=== PATIENT | male | born 1950 | race Caucasian/White ===

== ENCOUNTER → 2021-01-17 | Outpatient (CLI) | payer MEDICARE ==
--- NOTE | 2021-01-17 11:43 | P.STRESS ---
- Stress Test Note Stress Test Results/Findings: Exam Performed: stress echo exercise Exam Date: 01/17/21 Reason for Exam: Abnormal EKG Height: 5 ft 7 in Weight: 99.5 kg Protocol: Brian Stage: II Duration of Exercise: 5:15 Resting Heart Rate: 78 Resting Blood Pressure: 192/80 Maximum Achieved Heart Rate: 141 Maximum Achieved Blood Pressure: 200/78 85% PMHR: 128 100% PMHR: 151 METS: 5.2 Technologist Comment: Stress Test Results/Findings: This is a 70-year-old gentleman with history of hypertension and diabetes and smoking history, being evaluated for cardiac status. Stress data:. Baseline EKG showed sinus rhythm with normal MS interval and nonspecific ST-T abnormalities. Blood pressure at rest is 190/80 with pulse rate of 78. Patient walked on a Brian protocol for 10 minutes and 50 seconds achieving a maximal heart rate of 141 with blood pressure 200/78. EKGs taken during and after exercise showed more problems with ST-T abnormalities. Compared to the baseline with about 1-[address] depression. Echo data: Baseline echo images showed normal wall motion and thickening. Exercise echo images showed augmentation of wall motion and thickening in all the segments. Final impression: #1. Negative stress test #2. Negative stress echo.
--- NOTE | 2021-01-19 10:21 | ECHOS ---
Stress Test Results/Findings: Exam Performed: stress echo exercise Exam Date: 01/17/21 Reason for Exam: Abnormal EKG Height: 5 ft 7 in Weight: 99.5 kg Protocol: Brian Stage: II Duration of Exercise: 5:15 Resting Heart Rate: 78 Resting Blood Pressure: 192/80 Maximum Achieved Heart Rate: 141 Maximum Achieved Blood Pressure: 200/78 85% PMHR: 128 100% PMHR: 151 METS: 5.2 Technologist Comment: Stress Test Results/Findings: This is a 70-year-old gentleman with history of hypertension and diabetes and smoking history, being evaluated for cardiac status. Stress data:. Baseline EKG showed sinus rhythm with normal DE interval and nonspecific ST-T abnormalities. Blood pressure at rest is 190/80 with pulse rate of 78. Patient walked on a Brian protocol for 10 minutes and 50 seconds achieving a maximal heart rate of 141 with blood pressure 200/78. EKGs taken during and after exercise showed more problems with ST-T abnormalities. Compared to the baseline with about 1-[address] depression. Echo data: Baseline echo images showed normal wall motion and thickening. Exercise echo images showed augmentation of wall motion and thickening in all the segments. Final impression: #1. Negative stress test #2. Negative stress echo. MICHELLE
== END | disposition home or self-care (01) ==
LOC: RADNMMAIN 09:42
PROVIDERS: ATTEND Family Medicine
DX: I10 Essential (primary) hypertension (principal); E78.00 Pure hypercholesterolemia, unspecified; E11.9 Type 2 diabetes mellitus without complications
CPT/HCPCS: 93351

== ENCOUNTER 2021-08-05 15:21 | Emergency (ER) | payer MEDICARE ==
[2021-08-05 15:59] VITALS: RESP 18
--- NOTE | 2021-08-05 16:14 | ED ---
URI HPI - General Chief Complaint: Upper Respiratory Infection Stated Complaint: Difficulty Breathing Time Seen by Provider: 08/05/21 16:12 Source: patient Mode of arrival: ambulatory Limitations: no limitations - History of Present Illness Initial Comments: 70-year-old male patient presents to the emergency department today for evaluation of cough and headache. Patient states he is having associated rib pain from the persisting cough. States during coughing episodes he does become short of breath. Denies any fever or chills. States his daughter was recently sick with similar symptoms. She never was tested. He is concerned he may have COVID. He denies nausea, vomiting, or diarrhea. Denies chest pain. Has medical history significant for DM, HTN, and is a former smoker. No formal diagnosis of COPD. - Related Data Home Medications Medication Instructions Recorded Confirmed Losartan [Cozaar] 50 mg PO DAILY 02/16/15 02/17/15 amLODIPine BESYLATE [Norvasc] 10 mg PO DAILY 02/16/15 02/17/15 hydroCHLOROthiazide [Hydrodiuril] 25 mg PO DAILY 02/16/15 02/17/15 Previous Rx's Medication Instructions Recorded Azithromycin [Zithromax Z-pack (6 0 mg PO DIRECTED #6 tab 08/05/21 tabs)] guaiFENesin-DM 600/30MG [Mucinex 2 each PO Q12HR PRN #20 tab 08/05/21 Dm] predniSONE 50 mg PO DAILY #5 tablet 08/05/21 Allergies Allergy/AdvReac Type Severity Reaction Status Date / Time No Known Allergies Allergy Verified 08/05/21 15:58 Review of Systems ROS Statement: Those systems with pertinent positive or pertinent negative responses have been documented in the HPI. ROS Other: All systems not noted in ROS Statement are negative. Past Medical History Past Medical History: Diabetes Mellitus, Hyperlipidemia, Hypertension History of Any Multi-Drug Resistant Organisms: None Reported Past Surgical History: Orthopedic Surgery Additional Past Surgical History / Comment(s): LT THUMB TRIGGER RELEASE. COLONOSCOPY Past Anesthesia/Blood Transfusion Reactions: No Reported Reaction Past Psychological History: No Psychological Hx Reported Smoking Status: Never smoker Past Alcohol Use History: Occasional Past Drug Use History: None Reported - Past Family History Brother(s) Family Medical History: Cancer General Exam Limitations: no limitations General appearance: alert, in no apparent distress Eye exam: Present: normal appearance, PERRL, EOMI. Absent: scleral icterus, conjunctival injection, periorbital swelling ENT exam: Present: normal exam, normal oropharynx, mucous membranes moist Respiratory exam: Present: normal lung sounds bilaterally. Absent: respiratory distress, wheezes, rales, rhonchi, stridor Cardiovascular Exam: Present: regular rate, normal rhythm, normal heart sounds. Absent: systolic murmur, diastolic murmur, rubs, gallop, clicks GI/Abdominal exam: Present: soft, normal bowel sounds. Absent: distended, tenderness, guarding, rebound, rigid Neurological exam: Present: alert, oriented X3, CN II-XII intact Psychiatric exam: Present: normal affect, normal mood Skin exam: Present: warm, dry, intact, normal color. Absent: rash Course Vital Signs 08/05/21 08/05/21 08/05/21 15:55 17:28 18:17 Temperature 99.8 F H 99.4 F Pulse Rate 71 72 Respiratory 18 18 18 Rate Blood Pressure 157/78 O2 Sat by Pulse 95 Oximetry 08/05/21 18:26 Temperature 99.4 F Pulse Rate 72 Respiratory 18 Rate Blood Pressure 157/78 O2 Sat by Pulse 95 Oximetry Medical Decision Making - Medical Decision Making 70-year-old male patient presents to the emergency department today for evaluation of upper respiratory congestion and cough. Also reports headaches. Physical examination revealed clear lung sounds. Oxygen saturation 95% on room air. Chest x-ray is negative. Tested negative for COVID-19. He'll be discharged with prescription for prednisone, Mucinex, azithromycin. Instructed to follow-up with the primary care physician for recheck in 1-2 days. Return parameters discussed in detail. He verbalizes understanding and agrees with this plan. Case discussed with my attending Dr. Yancey. - Lab Data Lab Results 08/05/21 Range/Units 16:08 Coronavirus (PCR) Not Detected (Not Detectd) - Radiology Data Radiology results: report reviewed, image reviewed Two-view x-ray of the chest is obtained. Report was reviewed in its entirety. Impression by Dr. Cope shows no active cardiopulmonary disease. Normal heart. Disposition Clinical Impression: Acute bronchitis Disposition: ADMITTED IP TO THIS [facility] Condition: Serious Instructions (If sedation given, give patient instructions): Acute Bronchitis (ED) Additional Instructions: Increase fluids. Take medications as directed. Follow up with your primary care physician for recheck in 1-2 days. Prescriptions: guaiFENesin-DM 600/30MG [Mucinex Dm] 2 each PO Q12HR PRN #20 tab PRN Reason: Cough predniSONE 50 mg PO DAILY #5 tablet Azithromycin [Zithromax Z-pack (6 tabs)] 0 mg PO DIRECTED #6 tab Is patient prescribed a controlled substance at d/c from ED?: No Referrals: Randall Masters MD [Primary Care Provider] - 1-2 days Time of Disposition: 18:08
--- NOTE | 2021-08-05 18:04 | XR ---
EXAMINATION TYPE: XR chest 2V DATE OF EXAM: 08/05/2021 COMPARISON: NONE HISTORY: Cough TECHNIQUE: 2 views FINDINGS: Heart is normal. Lungs are clear of consolidation. There is slight coarsening of interstiti al markings. Costophrenic angles are clear. IMPRESSION: No active cardiopulmonary disease. Normal heart.
[2021-08-05 18:18] VITALS: BP 157/78; PULSE 72; TEMP 99.4
== END 2021-08-05 18:27 | disposition other institution (70) ==
LOC: EC 15:21
DX: J20.9 Acute bronchitis, unspecified (principal); I10 Essential (primary) hypertension; E11.9 Type 2 diabetes mellitus without complications; E78.5 Hyperlipidemia, unspecified; Z79.52 Long term (current) use of systemic steroids; Z20.822 Contact with and (suspected) exposure to COVID-19; Z79.84 Long term (current) use of oral hypoglycemic drugs
CPT/HCPCS: 71046; 87635; 99285

== ENCOUNTER 2021-09-07 16:35 | Emergency (ER) | payer MEDICARE ==
[2021-09-07 17:39] VITALS: BP 176/72; PULSE 110; RESP 20; TEMP 98.6
--- NOTE | 2021-09-07 21:25 | XR ---
EXAMINATION TYPE: XR shoulder complete RT DATE OF EXAM: 09/07/2021 COMPARISON: NONE HISTORY: Pain and bruising TECHNIQUE: 3 views FINDINGS: I see no fracture nor dislocation. Joint spaces are normal. There are no pathologic calcifi cations. IMPRESSION: Negative right shoulder exam.
--- NOTE | 2021-09-07 21:39 | ED ---
Upper Extremity HPI - General Chief Complaint: Extremity Injury, Upper Stated Complaint: Rt Shoulder Pain Time Seen by Provider: 09/07/21 20:49 Source: patient, RN notes reviewed Mode of arrival: ambulatory Limitations: no limitations - History of Present Illness Initial Comments: Patient is a 71-year-old male presenting to the emergency Department with complaints of injury to his right shoulder. He states about 1 month ago, he was putting up an electric fireplace when it slipped and he caught most of it with his right arm. He states he felt a pull and pain in the front of his right shoulder. He states he's been noticing over the past couple weeks and then one week ago he was putting away a pool and doing a lot of heavy lifting which and aggravated the arm again. He states a few days ago he noticed bruising along his right biceps and got concerned, came in for evaluation. He states the pain is actually been improving over the last couple days, he has full range of motion. He has no further complaints at this time. - Related Data Home Medications Medication Instructions Recorded Confirmed Losartan [Cozaar] 50 mg PO DAILY 02/16/15 02/17/15 amLODIPine BESYLATE [Norvasc] 10 mg PO DAILY 02/16/15 02/17/15 hydroCHLOROthiazide [Hydrodiuril] 25 mg PO DAILY 02/16/15 02/17/15 Previous Rx's Medication Instructions Recorded Azithromycin [Zithromax Z-pack (6 0 mg PO DIRECTED #6 tab 08/05/21 tabs)] guaiFENesin-DM 600/30MG [Mucinex 2 each PO Q12HR PRN #20 tab 08/05/21 Dm] predniSONE 50 mg PO DAILY #5 tablet 08/05/21 Allergies Allergy/AdvReac Type Severity Reaction Status Date / Time No Known Allergies Allergy Verified 09/07/21 17:39 Review of Systems ROS Statement: Those systems with pertinent positive or pertinent negative responses have been documented in the HPI. ROS Other: All systems not noted in ROS Statement are negative. Past Medical History Past Medical History: Diabetes Mellitus, Hyperlipidemia, Hypertension History of Any Multi-Drug Resistant Organisms: None Reported Past Surgical History: Orthopedic Surgery Additional Past Surgical History / Comment(s): LT THUMB TRIGGER RELEASE. COLONOSCOPY Past Anesthesia/Blood Transfusion Reactions: No Reported Reaction Past Psychological History: No Psychological Hx Reported Smoking Status: Never smoker Past Alcohol Use History: Occasional Past Drug Use History: None Reported - Past Family History Brother(s) Family Medical History: Cancer General Exam - General Exam Comments Initial Comments: GENERAL: Patient is well-developed and well-nourished. Patient is nontoxic and in no acute distress. HEAD: Atraumatic, normocephalic. EYES: Pupils equal round and reactive to light, extraocular movements intact, sclera anicteric, conjunctiva are normal. Eyelids were unremarkable. LUNGS: Unlabored respirations. Breath sounds clear to auscultation bilaterally and equal. No wheezes rales or rhonchi. HEART: Regular rate and rhythm without murmurs, rubs or gallops. MUSCULOSKELETAL: Patient has mild pain to palpation of the anterior right shoulder over the biceps tendon attachment, he has some mild bruising noted over the biceps belly. His range of motion is completely normal, strength is 5 out of 5. Mild swelling noted over the right bicep area as well. No clubbing or cyanosis. NEUROLOGICAL: Patient is alert and oriented x 3. SKIN: Warm, Dry, normal turgor, no rashes or lesions noted. Limitations: no limitations Course Vital Signs 09/07/21 17:37 Temperature 98.6 F Pulse Rate 110 H Respiratory 20 Rate Blood Pressure 176/72 O2 Sat by Pulse 94 L Oximetry Medical Decision Making - Medical Decision Making Patient is a 71-year-old male here for right shoulder pain over the past month. He had another recent injury and noted some bruising over the biceps belly. His exam is consistent with a bicep tendon strain as well as strain to the biceps muscle. We discussed limiting his physical activity with the right arm, he needs to let this heal. He has seen Dr. Garnett in the past for his fingers, we discussed going back to see their office if symptoms persist after resting. He is agreeable to this plan of care. He can use ice to the areas well. X- ray reveals no acute fractures dislocations. He is stable for discharge. Disposition Clinical Impression: Strain of right biceps tendon Disposition: HOME SELF-CARE Condition: Stable Instructions (If sedation given, give patient instructions): Tendinitis (ED) Additional Instructions: Please return to the Emergency Department if symptoms worsen or any other concerns. Recommend decreasing heavy lifting of the right arm to allow for biceps to heal. If symptoms persist for the next 2-3 weeks, follow-up with your orthopedic doctor. Is patient prescribed a controlled substance at d/c from ED?: No Referrals: Randall Masters MD [Primary Care Provider] - 1-2 days Braeden Irvin MD [Medical Doctor] - 1-2 days Time of Disposition: 21:39
== END 2021-09-07 21:51 | disposition home or self-care (01) ==
LOC: EC 16:35
DX: S46.211A Strain of muscle, fascia and tendon of other parts of biceps, right arm, initial encounter (principal); E11.9 Type 2 diabetes mellitus without complications; I10 Essential (primary) hypertension; E78.5 Hyperlipidemia, unspecified; Z79.52 Long term (current) use of systemic steroids; Z79.899 Other long term (current) drug therapy; W20.8XXA Other cause of strike by thrown, projected or falling object, initial encounter
CPT/HCPCS: 99283

== ENCOUNTER → 2024-02-18 | Outpatient (CLI) | payer MEDICARE ==
--- NOTE | 2024-02-19 15:09 | CA ---
Transthoracic Echo Report Name: Luis M Gonzales Age: 73 Gender: M : 1950 Exam Date: 02/18/2024 11:29 Exam Location: [place] [facility] Ht (in): 57 Wt (lb): 210 Ordering Physician: Lizet Breen DO Attending/Referring Phys: Application Development Intern Macrina Mar RDCS Procedure CPT: Indications: R01.1 cardiac murmur R00.1 Bradycardia Cardiac Hx: Technical Quality: Fair Contrast 1: Total Dose (mL): Contrast 2: Total Dose (mL): MEASUREMENTS (Male / Female) Normal Values 2D ECHO LV Diastolic Diameter PLAX 4.6 cm 4.2 - 5.9 / 3.9 - 5.3 cm LV Systolic Diameter PLAX 2.9 cm IVS Diastolic Thickness 1.0 cm 0.6 - 1.0 / 0.6 - 0.9 cm LVPW Diastolic Thickness 0.9 cm 0.6 - 1.0 / 0.6 - 0.9 cm LV Relative Wall Thickness 0.4 RV Internal Dim ED PLAX 1.7 cm LA Systolic Diameter LX 4.1 cm 3.0 - 4.0 / 2.7 - 3.8 cm LV Diastolic Volume MOD BP 62.7 cm??? 67 - 155 / 56 - 104 cm??? LV Systolic Volume MOD BP 24.5 cm??? 22 - 58 / 19 - 49 cm??? LV Ejection Fraction MOD BP 61.0 % >= 55 % LV Diastolic Volume MOD 4C 63.8 cm??? LV Systolic Volume MOD 4C 22.8 cm??? LV Ejection Fraction MOD 4C 64.3 % LV Diastolic Length 4C 6.8 cm LV Systolic Length 4C 5.3 cm LV Diastolic Volume MOD 2C 59.2 cm??? LV Systolic Volume MOD 2C 25.1 cm??? LV Ejection Fraction MOD 2C 57.6 % LV Diastolic Length 2C 6.5 cm LV Systolic Length 2C 5.6 cm LA Volume 64.4 cm??? 18 - 58 / 22 - 52 cm??? LA Volume Index 31.9 cm???/m??? 16 - 28 cm???/m??? M-MODE Aortic Root Diameter MM 2.8 cm LA Systolic Diameter MM 3.7 cm LA Ao Ratio MM 1.3 AV Cusp Separation MM 1.5 cm DOPPLER AV Peak Velocity 213.9 cm/s AV Peak Gradient 18.3 mmHg AV Mean Velocity 150.1 cm/s AV Mean Gradient 9.9 mmHg AV Velocity Time Integral 33.8 cm LVOT Peak Velocity 128.8 cm/s LVOT Peak Gradient 6.6 mmHg LVOT Velocity Time Integral 32.4 cm MV Area PHT 2.2 cm??? Mitral E Point Velocity 94.2 cm/s Mitral A Point Velocity 96.1 cm/s Mitral E to A Ratio 1.0 MV Deceleration Time 345.3 ms TR Peak Velocity 204.6 cm/s TR Peak Gradient 16.7 mmHg Right Ventricular Systolic Press 20.3 mmHg PV Peak Velocity 117.2 cm/s PV Peak Gradient 5.5 mmHg FINDINGS Left Ventricle Left ventricular ejection fraction is estimated at 55-60%. Normal Left ventricular size, wall thickness, systolic function with no obvious regional wall motion abnormalities. Normal Left ventricular diastolic filling pattern. Right Ventricle Normal right ventricular size and function. Right ventricular systolic pressure within normal limits. Right Atrium Normal right atrial size. Left Atrium Mildly increased left atrial diameter. Mildly increased left atrial volume. Mitral Valve Structurally normal mitral valve. Trace mitral regurgitation. Aortic Valve Trileaflet aortic valve. Trace aortic regurgitation. Mild aortic stenosis with a peak gradient of 18mmHg and a mean gradient of 10 mmHg. Tricuspid Valve Structurally normal tricuspid valve. Mild tricuspid regurgitation. Pulmonic Valve Structurally normal pulmonic valve. No pulmonic stenosis. Pericardium No pericardial or pleural effusion. Aorta Normal size aortic root and proximal ascending aorta. CONCLUSIONS Normal LV size and function with mild aortic stenosis Previewed by: Dr. Reynaldo Branch MD (Electronically Signed) Final Date: 19 February 2024 15:08
== END | disposition home or self-care (01) ==
LOC: RADECHMAIN 10:48
PROVIDERS: ATTEND Family Medicine
DX: I35.0 Nonrheumatic aortic (valve) stenosis (principal); R00.1 Bradycardia, unspecified; R01.1 Cardiac murmur, unspecified
CPT/HCPCS: 93306